=== PATIENT | male | born 1980 | race Caucasian/White ===

== ENCOUNTER 2025-09-16 12:27 | Emergency (ER) | payer BC ==
[~2025-09-16] VITALS: Ht 185.4 cm; Wt 93.9 kg
[2025-09-16] MEDS ORDERED: APIX5TAB PO (13:58)
[2025-09-16 14:38] LABS: PLATELET COUNT (AUTO) 208 K/uL (152-348); RED BLOOD CELL COUNT(AUTO) 4.94 MIL/uL (4.06-5.63); RED CELL DISTRIBUTION WIDTH 13.1 % (12.1-16.2); WHITE BLOOD COUNT (AUTO) 6.8 K/uL (3.6-10.2)
[2025-09-16 14:47] LABS: CREATININE 0.6 mg/dL (0.6-1.3); SODIUM SERUM 139 mmol/L (136-145); UREA NITROGEN, BLOOD 6 mg/dL (7-18)
[2025-09-16 15:09] LABS: BAND % (MANUAL) 2 % (0-10); EOSINOPHILS % (MANUAL) 21 % (0-8); LYMPHOCYTES % (MANUAL) 12 % (20-40); MONOCYTES % (MANUAL) 6 % (2-10); NEUTROPHILS % (MANUAL) 59 % (42-75)
[2025-09-16 15:10] LABS: PLATELET ESTIMATE ADEQUATE
[2025-09-16] MEDS ORDERED: SWABABLE VALVE TRANSFER SET EA MC ONE (15:10)
[2025-09-16] MEDS ORDERED: IOHEXOL 350 100 ML INFUS..BTL ONE ×2 (15:10→15:27)
[2025-09-16] MEDS ORDERED: IV NORMAL SALINE 250 ML IV ONE (15:11)
[2025-09-16 16:44] VITALS: BP 118/84
[2025-09-16 17:40] VITALS: BP 114/78; TEMP 97.8; O2SAT 95
== END 2025-09-16 17:42 | disposition home or self-care (01) ==
LOC: ER 12:27
DX: C18.9 Malignant neoplasm of colon, unspecified (principal); J91.0 Malignant pleural effusion; I26.99 Other pulmonary embolism without acute cor pulmonale; J98.11 Atelectasis; Z79.01 Long term (current) use of anticoagulants; Z85.048 Personal history of other malignant neoplasm of rectum, rectosigmoid junction, and anus
CPT/HCPCS: 99285; 93970; 71275; 80048; 83880; 85007; 85027; 85379; 85730; 84484; 36415; 93005; Q9967 ×2; 70030-TC; A4606; A4663